=== PATIENT | male | born 1935 | race Caucasian/White ===

== ENCOUNTER 2022-01-27 16:53 | Inpatient (IN) | payer MEDICARE, OTHER ==
[~2022-01-27] VITALS: Ht 165.1 cm; Wt 65.8 kg
--- NOTE | 2022-01-27 17:10 | NUR ---
TREV BLAIR FROM [facility] FOR ELEVATED WBC=16.4 AND FEVER. TO ER BED 5, HOOKED TO MONITOR, VSS. RESPIRATORY THERAPIST AT BEDSIDE, VENT SETTINGS OF: MODE SIMV VC, FiO2 40%, VT 500, RATE 10, PEEP 5. CHANGEDTO HOSP GOWN, COOLING MEASURES DONE. AWAITING MD MELENDEZ
--- NOTE | 2022-01-27 17:35 | NUR ---
DR DUNN AT BEDSIDE
[2022-01-27] MEDS ORDERED: ACETAMINOPHEN 650 MG/SUPP.RECT RC ONE ×2 (17:50→18:30)
[2022-01-27] MEDS ORDERED: IV NS 0.9% 1,000 ML BAG IV ONE (18:00)
--- NOTE | 2022-01-27 18:07 | NUR ---
JUNK REMOVAL SPECIALIST AT BEDSIDE
[2022-01-27 18:11] LABS: BASOPHILS # (AUTO) 0.1 K/uL (0.0-0.2); BASOPHILS % (AUTO) 0.5 % (0.0-2.0); EOSINOPHILS % (AUTO) 0.5 % (0.0-6.0); HEMATOCRIT 26 % (39-51); HEMOGLOBIN 8.6 g/dL (13.5-17.5); LYMPHOCYTES % (AUTO) 7.9 % (20.0-44.0); MEAN CORPUSCULAR HGB CONC 33 g/dl (31.0-36.0); MEAN CORPUSCULAR VOLUME 81 fL (80-96); MONOCYTES # (AUTO) 0.6 K/uL (0.1-1.30); MONOCYTES % (AUTO) 5.1 % (2.0-12.0); NEUTROPHILS # (AUTO) 10.6 K/uL (1.8-8.9); PLATELET COUNT (AUTO) 272 K/uL (150-450); RED BLOOD CELL COUNT(AUTO) 3.21 MIL/uL (4.5-6.0); WHITE BLOOD COUNT (AUTO) 12.4 K/uL (4.3-11.0)
--- NOTE | 2022-01-27 18:13 | NUR ---
INVESTIGATOR VICE AT BEDSIDE
--- NOTE | 2022-01-27 18:14 | NUR ---
RAPID COVID SWAB DONE AND SENT TO LAB
--- NOTE | 2022-01-27 18:19 | NUR ---
URINE SAMPLE COLLECTED VIA STRAIGHT CATHETER, SENT TO LAB
[2022-01-27 18:36] LABS: ALANINE AMINOTRANSFERASE 63 U/L (12-78); ALKALINE PHOSPHATASE 186 U/L (46-116); ASPARTATE AMINOTRANSFERASE 57 U/L (15-37); BILIRUBIN,DIRECT 0.3 mg/dL (0.0-0.2); BILIRUBIN,TOTAL 0.6 mg/dL (0.2-1.0); CALCIUM, SERUM 8.5 mg/dL (8.5-10.1); CARBON DIOXIDE 34 mmol/L (21-32); CHLORIDE 93 mmol/L (98-107); CREATININE 0.7 mg/dL (0.6-1.3); GLUCOSE 164 mg/dL (74-106); POTASSIUM 4.3 mmol/L (3.5-5.1); SODIUM SERUM 130 mmol/L (136-145); TOTAL PROTEIN, SERUM 7.4 g/dL (6.4-8.2); UREA NITROGEN, BLOOD 23 mg/dL (7-18)
[2022-01-27 19:53] LABS: BILIRUBIN,URINE NEGATIVE (NEGATIVE); COLOR,URINE YELLOW (YELLOW); LEUKOCYTE ESTERASE ,URINE NEGATIVE (NEGATIVE); NITRITE, URINE NEGATIVE (NEGATIVE); PROTEIN,URINE TRACE mg/dl (NEGATIVE); UGLUCOSE NEGATIVE (NEGATIVE); UROBILINOGEN,URINE >=8.0 EU/dL (0.2)
[2022-01-27] MEDS ORDERED: ENOXAPARIN SODIUM 30 MG/0.3 ML DISP.SYRIN SQ SCH (21:00)
[2022-01-27] MEDS ORDERED: ONDANSETRON HCL/PF 4 MG/2 ML VIAL IVP PRN (21:00)
[2022-01-27] MEDS ORDERED: HYDROCODONE/APAP 5/325MG TABLET GT PRN (21:00)
[2022-01-27] MEDS ORDERED: MAG HYDROX/AL HYDROX/SIMETH 30 ML UDC PO PRN (21:00)
[2022-01-27] MEDS ORDERED: MAGNESIUM HYDROXIDE 30 ML UDC PO PRN (21:00)
[2022-01-27] MEDS ORDERED: Z GUARD REMEDY 4 OZ OINT TP PRN (21:00)
[2022-01-27] MEDS ORDERED: MORPHINE SULFATE INJ 2 MG/ML DISP.SYRIN IV PRN (21:00)
[2022-01-27] MEDS ORDERED: CEFEPIME 1 GM in IV D5W 50 ML IV SCH (21:00)
--- NOTE | 2022-01-27 21:03 | NUR ---
BED GIVEN 111-1
--- NOTE | 2022-01-27 21:10 | NUR ---
US TECH FOR ECHOCARRDIOGRAM AT PT'S BEDSIDE
[2022-01-27] MEDS ORDERED: VANCOMYCIN 1.25 GM in IV D5W 250 ML IV ONE (22:00)
--- NOTE | 2022-01-27 22:05 | NUR ---
REPORT GIVEN TO KATHY TRIVEDI RN FOR KEIRY
--- NOTE | 2022-01-27 22:34 | NUR ---
PT TRANSPORTED TO UNIT ON GURNEY WITH EMT, RT AND RN AT BEDSIDE W/ ACLS PROTOCOL. NAD NOTED DURING TRANSPORT
--- NOTE | 2022-01-27 22:35 | NUR ---
2235 Admitted from ER 86 year old male via [facility] with Dx of Pneumonia. Patient is vented with eyes open. Does not follow any commands. Systems assessment done, please refer to flow sheet. Tracheostomy intact and patent, and secured at midline, connected to vent with prescribed settings. Suctioned with moderate amount of whitish secretions. Noted with DTI on bilateral heels, and open wound on sacrococcyx and left gluteal fold. Dressing applied on affected areas. Bilateral lower and upper extremities with contractures. PEG intact and patent. Admission care rendered. Complete bed bath rendered. Turned and repositioned form skin management. Call light placed within reach.
[2022-01-27 23:00] VITALS: BP 130/55
[2022-01-27] MEDS: IV NS 0.9% 1,000 ML IV PRN (23:10)
[2022-01-27] MEDS ORDERED: CEFEPIME 1 GM VIAL ONE (23:59)
[2022-01-28] MEDS ORDERED: VANCOMYCIN 1 GM VIAL ONE
[2022-01-28] MEDS ORDERED: VANCOMYCIN 500 MG VIAL ONE (00:01)
[2022-01-28] MEDS ORDERED: CRAN400C GT (02:50)
[2022-01-28] MEDS ORDERED: CARV6.25 GT (02:50)
[2022-01-28] MEDS ORDERED: LINA5TAB GT (02:50)
[2022-01-28] MEDS ORDERED: EPOE200011 SUBCUT (02:50)
[2022-01-28] MEDS ORDERED: ATOR40TA GT (02:50)
[2022-01-28] MEDS ORDERED: CLON0.5T4 GT (02:50)
[2022-01-28] MEDS ORDERED: IPRA4AER IH ×2 (02:50)
[2022-01-28] MEDS ORDERED: CHLO473M3 PO (02:50)
[2022-01-28] MEDS ORDERED: INSU100V11 SQ (02:50)
[2022-01-28] MEDS ORDERED: CLON0.1T GT (02:50)
[2022-01-28] MEDS ORDERED: DOCU50LI13 GT (02:50)
[2022-01-28] MEDS ORDERED: NUT.237L30 GT (02:50)
[2022-01-28] MEDS ORDERED: ACET325T53 PO (02:50)
[2022-01-28] MEDS ORDERED: CHOL400T11 GT (02:50)
[2022-01-28] MEDS ORDERED: ASCO500T10 GT (02:50)
[2022-01-28] MEDS ORDERED: INSU100V7 SQ (02:50)
[2022-01-28 04:30] VITALS: BP 108/42
[2022-01-28] MEDS ORDERED: DEXTROSE 50%-WATER 50 ML DISP.SYRIN IV PRN (05:00)
[2022-01-28] MEDS ORDERED: CLONIDINE HCL 0.1 MG TABLET GT PRN (05:00)
[2022-01-28] MEDS ORDERED: GLUCERNA 1.2 1,000 ML BOTTLE NG PRN (05:00)
[2022-01-28] MEDS: ACETAMINOPHEN 325 MG TABLET PO PRN ×2 (05:03→16:11)
[2022-01-28] MEDS: BLOOD SUGAR DIAGNOSTIC 1 EACH STRIP IN SCH ×4 (06:48→23:39)
[2022-01-28] MEDS: INSULIN REGULAR, HUMAN 100 UNIT/ML 3 ML VIAL SQ PRN ×4 (06:49→23:43)
--- NOTE | 2022-01-28 07:27 | NUR ---
RN NOTE PT TOLERATES VENT SETTINGS, O2 SAT AT 100%. NO DISTRESS NOTED.GT PATENT AND IN PLACE, STARTED TUBE FEEDING OF GLUCERNA AT 60ML/HR. HOB ELEVATED. TMAX 100.6 TYLENOL GIVEN. TEMP AFTER 99.9. PT FOR WOUND CONSULT. TURNED AND REPOSITIONED. ENDORSED TO AM SHIFT NURSE FOR KEIRY.
--- NOTE | 2022-01-28 07:34 | NUR ---
RN OPENING NOTES RECEIVED PATIENT REPORT FROM NIGHTSHIFT RN. ON MECHANICAL VENT TOLERATING SETTINGS WELL, OXYGEN SATURATION AT 100%. ATTACHED TO EXTERNAL INGREDIENT SCALER HELPER READING NORMAL SINUS RHYTHM. DIAPER NOTED. SKIN ALTERATIONS DOCUMENTED IN PHYSICAL CHART. TUBE FEEDING RUNNING GLUCERNA AT 60 MLS/HR. SAFETY MEASURES IMPLEMENTED, BED IN LOWEST LOCKED POSITION, SIDE RAILS UP TIMES 2, CALL LIGHT WITHIN REACH. WILL CONTINUE PLAN OF CARE AND ANTICIPATE NEEDS.
[2022-01-28 08:00] VITALS: BP 131/55
[2022-01-28 08:57] LABS: BASOPHILS % (AUTO) 0.2 % (0.0-2.0); EOSINOPHILS % (AUTO) 0.5 % (0.0-6.0); HEMATOCRIT 24 % (39-51); LYMPHOCYTES # (AUTO) 0.6 K/uL (0.8-4.8); LYMPHOCYTES % (AUTO) 6.1 % (20.0-44.0); MEAN CORPUSCULAR HGB CONC 33 g/dl (31.0-36.0); MEAN CORPUSCULAR VOLUME 81 fL (80-96); MONOCYTES # (AUTO) 0.5 K/uL (0.1-1.30); MONOCYTES % (AUTO) 4.8 % (2.0-12.0); NEUTROPHILS # (AUTO) 9.3 K/uL (1.8-8.9); NEUTROPHILS % (AUTO) 88.4 % (43.0-81.0); PLATELET COUNT (AUTO) 243 K/uL (150-450); RED BLOOD CELL COUNT(AUTO) 2.98 MIL/uL (4.5-6.0); WHITE BLOOD COUNT (AUTO) 10.5 K/uL (4.3-11.0)
[2022-01-28] MEDS ORDERED: PANTOPRAZOLE 40 MG VIAL IV SCH (09:00)
[2022-01-28] MEDS: LINAGLIPTIN 5 MG TABLET GT SCH (09:37)
[2022-01-28] MEDS: CHOLECALCIFEROL (VITAMIN D 3) 400 UNIT TABLET GT SCH (09:37)
[2022-01-28] MEDS: clonazePAM 0.5 MG TABLET GT SCH ×2 (09:37→16:11)
[2022-01-28] MEDS: CEFEPIME 2 GM in IV D5W 100 ML IV SCH ×2 (09:37→21:44)
[2022-01-28] MEDS: DOCUSATE SODIUM LIQ 100 MG/10 ML UDC GT SCH ×2 (09:38→16:11)
[2022-01-28] MEDS: ASCORBIC ACID 500 MG TABLET GT SCH (09:38)
[2022-01-28] MEDS: CARVEDILOL 6.25 MG TABLET GT SCH ×2 (09:38→16:12)
[2022-01-28 09:39] LABS: CALCIUM, SERUM 8.2 mg/dL (8.5-10.1); CREATININE 0.7 mg/dL (0.6-1.3); MAGNESIUM 2.5 mg/dL (1.8-2.4); PHOSPHORUS 3.6 mg/dL (2.5-4.9); POTASSIUM 4.1 mmol/L (3.5-5.1)
[2022-01-28] MEDS: ENOXAPARIN SODIUM 60 MG/0.6 ML DISP.SYRIN SQ SCH ×2 (09:40→21:46)
[2022-01-28] MEDS: CHLORHEXIDINE GLUCONATE 15 ML UDC MM SCH ×2 (09:41→16:11)
[2022-01-28 09:49] LABS: THYROID STIMULATING HORMONE 1.804 uIU/mL (0.358-3.74)
--- NOTE | 2022-01-28 10:05 | NUR ---
WOUND CARE CONSULT: PT PRESENTS WITH SACRAL INTACT DEEP TISSUE INJURY WITH SCARRING AND FOOT WOUNDS, PRESENT ON ADMISSION. PT IS INCONTINENT OF URINE AND STOOL. RECOMMENDATIONS MADE FOR SKIN PROTECTION. DISCUSSED WITH NURSING STAFF. DR GARRISON CALLED FOR DPM CONSULT. IN AGREEMENT WITH PLAN OF CARE. FIRST STEP LOW [facility] IS ON ORDER. Addendum: 01/28/22 at 1007 by HIMANSHU DRISCOLL WNDNU Amended: Links added.
[2022-01-28 12:00] VITALS: BP 143/62
[2022-01-28] MEDS: VANCOMYCIN 0.75 GM in IV D5W 250 ML IV SCH (13:18)
[2022-01-28 16:00] VITALS: BP 133/51
[2022-01-28] MEDS: IV NS 0.9% 1,000 ML IV PRN (16:17)
--- NOTE | 2022-01-28 18:55 | NUR ---
RN CLOSING NOTES PATIENT ON MECHANICAL VENT TOLERATING SETTINGS WELL, OXYGEN SATURATION AT 100%. ATTACHED TO EXTERNAL EDUCATION TRAINER READING NORMAL SINUS RHYTHM. DIAPER NOTED. SKIN ALTERATIONS DOCUMENTED IN PHYSICAL CHART. TUBE FEEDING RUNNING GLUCERNA AT 65 MLS/HR. CONDOM CATHETER ATTACHED DRAINING CLEAR YELLOW URINE. SAFETY MEASURES IMPLEMENTED, BED IN LOWEST LOCKED POSITION, SIDE RAILS UP TIMES 2, CALL LIGHT WITHIN REACH. WILL ENDORSE TO NIGHTSHIFT RN FOR CONTINUATION OF CARE.
[2022-01-28 20:00] VITALS: BP 105/42
--- NOTE | 2022-01-28 20:03 | NUR ---
RN NOTE RECEIVED PT WITH TRACH CONNECTED TO VENT ON SIMV MODE. TOLERATING, NOT IN ANY DISTRESS. O2 SAT AT 100%. GT PATENT AND INPLACE, NO RESIDUALS NOTED. ON GLUCERNA 1.2 AT 65ML/HR. HOB ELEVATED. WOUND DRESSINGS CLEAN DRY AND INTACT. NS RUNNING AT 75ML/HR. WILL CONTINUE TO MONITOR.
--- NOTE | 2022-01-28 20:29 | NUR ---
Pt recvd on ordered SIMV vent settings with trach patent and secured. Suction done Q2/PRN. No SOB or respiratory distress noted at this time. SPO2 >92%. Vent plugged into red outlet with alarms on and audible. Spare trach and ambu bag at bedside.
[2022-01-28] MEDS: ATORVASTATIN 40 MG TABLET GT SCH (21:46)
[2022-01-28] MEDS: INSULIN GLARGINE, 100 UNIT/ML CARTRIDGE SQ SCH (22:00)
[2022-01-29] VITALS: BP 118/56
[2022-01-29] MEDS: VANCOMYCIN 0.75 GM in IV D5W 250 ML IV SCH ×2 (01:05→13:19)
[2022-01-29 04:00] VITALS: BP 132/47
[2022-01-29] MEDS: GLUCERNA 1.2 1,000 ML BOTTLE PEG PRN (05:32)
[2022-01-29] MEDS: INSULIN REGULAR, HUMAN 100 UNIT/ML 3 ML VIAL SQ PRN ×4 (05:50→19:05)
[2022-01-29] MEDS: BLOOD SUGAR DIAGNOSTIC 1 EACH STRIP IN SCH ×3 (05:50→18:27)
[2022-01-29 06:11] LABS: BASOPHILS % (AUTO) 0.1 % (0.0-2.0); EOSINOPHILS % (AUTO) 0.5 % (0.0-6.0); HEMATOCRIT 26 % (39-51); HEMOGLOBIN 8.5 g/dL (13.5-17.5); LYMPHOCYTES # (AUTO) 0.5 K/uL (0.8-4.8); LYMPHOCYTES % (AUTO) 5.4 % (20.0-44.0); MEAN CORPUSCULAR HGB CONC 33 g/dl (31.0-36.0); MEAN CORPUSCULAR VOLUME 83 fL (80-96); MONOCYTES # (AUTO) 0.5 K/uL (0.1-1.30); MONOCYTES % (AUTO) 4.9 % (2.0-12.0); NEUTROPHILS # (AUTO) 9.1 K/uL (1.8-8.9); NEUTROPHILS % (AUTO) 89.1 % (43.0-81.0); PLATELET COUNT (AUTO) 236 K/uL (150-450); WHITE BLOOD COUNT (AUTO) 10.2 K/uL (4.3-11.0)
--- NOTE | 2022-01-29 06:45 | NUR ---
RN NOTE PT TOLERATES VENT SETTINGS, NO SIGNS OF DISTRESS NOTED. CONTINUE ON TUBE FEEDING, NO RESIDUALS NOTED, TOLERATING. KEPT HOB ELEVATED. FSBS 218, INSULIN COVERAGE GIVEN ORDERED. PT REMAIN AFEBRILE. PT WITH CONDOM CATH. CONTINUE ON IVF NS AT 75ML/HR, INFUSING WELL. FREQUENT MONITORING. WILL ENDORSE TO NEXT SHIFT NURSE FOR KEIRY.
[2022-01-29 06:53] LABS: ALBUMIN 1.7 g/dL (3.4-5.0); BILIRUBIN,TOTAL 0.5 mg/dL (0.2-1.0); CREATININE 0.8 mg/dL (0.6-1.3); MAGNESIUM 2.6 mg/dL (1.8-2.4); PHOSPHORUS 3.2 mg/dL (2.5-4.9); POTASSIUM 4.1 mmol/L (3.5-5.1); TOTAL PROTEIN, SERUM 6.6 g/dL (6.4-8.2)
[2022-01-29 08:00] VITALS: BP 161/57
[2022-01-29] MEDS: CHLORHEXIDINE GLUCONATE 15 ML UDC MM SCH ×2 (09:13→17:27)
[2022-01-29] MEDS: ASCORBIC ACID 500 MG TABLET GT SCH (09:13)
[2022-01-29] MEDS: DOCUSATE SODIUM LIQ 100 MG/10 ML UDC GT SCH ×2 (09:13→17:27)
[2022-01-29] MEDS: LINAGLIPTIN 5 MG TABLET GT SCH (09:13)
[2022-01-29] MEDS: CHOLECALCIFEROL (VITAMIN D 3) 400 UNIT TABLET GT SCH (09:14)
[2022-01-29] MEDS: CARVEDILOL 6.25 MG TABLET GT SCH ×2 (09:16→17:27)
[2022-01-29] MEDS: ENOXAPARIN SODIUM 40 MG/0.4 ML DISP.SYRIN SQ SCH (09:19)
[2022-01-29] MEDS: PANTOPRAZOLE 40 MG/PACK PACK GT SCH (09:25)
[2022-01-29] MEDS: clonazePAM 0.5 MG TABLET GT SCH ×2 (09:25→17:27)
[2022-01-29] MEDS: IV NS 0.9% 1,000 ML IV PRN (10:33)
[2022-01-29] MEDS: CEFEPIME 2 GM in IV D5W 100 ML IV SCH ×2 (11:11→20:25)
[2022-01-29 12:00] VITALS: BP 140/57
[2022-01-29 16:00] VITALS: BP 145/61
--- NOTE | 2022-01-29 19:25 | NUR ---
RN CLOSING NOTES PATIENT ON MECHANICAL VENT TOLERATING SETTINGS WELL, OXYGEN SATURATION AT 100%. ATTACHED TO EXTERNAL BOOK CRITIC READING NORMAL SINUS RHYTHM. DIAPER NOTED. SKIN ALTERATIONS DOCUMENTED IN PHYSICAL CHART. TUBE FEEDING RUNNING GLUCERNA AT 65 MLS/HR. CONDOM CATHETER ATTACHED DRAINING CLEAR YELLOW URINE. SAFETY MEASURES IMPLEMENTED, BED IN LOWEST LOCKED POSITION, SIDE RAILS UP TIMES 2, CALL LIGHT WITHIN REACH. WILL ENDORSE TO NIGHTSHIFT RN FOR CONTINUATION OF CARE.
--- NOTE | 2022-01-29 19:30 | NUR ---
RN NOTE I V FLUID NS RATE 75 ML/ HR IS DISCONTINUED.
[2022-01-29 20:00] VITALS: BP 140/59
--- NOTE | 2022-01-29 20:00 | NUR ---
OFFICE LEAD NOTES RECEIVED PT IN BED WITH TRACH CONNECTED TO VENT ON SIMV MODE.AT 2100 V/S STABLE FEBRILE 100.4 RR-36 PTS NOT TOLERATING SIMV PTS IN DISTRESS. RT AT BEDSIDE RECOMMEND AC SETTING SPOKE TO LEVI SECURITY ALARM TECHNICIAN WITH ORDER MAY PUT PTS TO AC MODE RATE OF 10 FI02 40% TV 500 PEEP OF 5 ORDER NOTED AND CARRIED OUT ,PTS RR WENT DOWN TO 19 O2 SAT AT 100%. GT PATENT AND INPLACE, NO RESIDUALS NOTED. ON GLUCERNA 1.2 AT 65ML/HR. HOB ELEVATED. COOLING MEASURES GIVEN ACETAMENOPHEN GIVEN ORDERED .WOUND DRESSINGS CLEAN DRY AND INTACT. WILL CONTINUE TO MONITOR.
[2022-01-29] MEDS: ACETAMINOPHEN 325 MG TABLET PO PRN (20:22)
--- NOTE | 2022-01-29 21:10 | NUR ---
RT NOTE LATE ENTRY Pt rec'd on SIMV mode. Pt showed increased Respiratory Rate, increased WOB, and inadequate spontaneous tidal volumes. Pt placed on noted AC mode settings per MD orders. Pt sx'd for thick mod amt of pale yellow secretions. Alarms are set and audible. Vent plugged into red outlet. Ambu bag at bedside. Addendum: 01/29/22 at 5757 by SABRINA WADE RT Amended: Links added.
--- NOTE | 2022-01-29 21:17 | NUR ---
RN NOTES patient remains tachypneic @36 even after medications given for temp and pain. Vent on SIMV mode, RT Elijah at bedside; will change vent setting to AC mode; notified Dr. Carrion with orders carried out. RR down to 19
[2022-01-29] MEDS: ATORVASTATIN 40 MG TABLET GT SCH (21:58)
[2022-01-30] VITALS: BP 129/56
--- NOTE | 2022-01-30 | NUR ---
ORDER EXPEDITER NOTES PTS TEMP CHECKED 97.4 VENTILATOR AC SETTING WELL TOLERATED.
--- NOTE | 2022-01-30 | NUR ---
daylin gould notes Blood sugar at 6am is 162mg/dl 3 units of regular insulin given per sliding scale .pts on gt feeding Addendum: 01/30/22 at 0656 by ELVA THAYER RN Blood sugar at 12mn is 161mg/dl 3 units of regular insulin given per sliding scale .pts on gt feeding
[2022-01-30] MEDS: INSULIN GLARGINE, 100 UNIT/ML CARTRIDGE SQ SCH ×2 (00:33→22:55)
[2022-01-30] MEDS: INSULIN REGULAR, HUMAN 100 UNIT/ML 3 ML VIAL SQ PRN ×5 (00:35→23:20)
[2022-01-30] MEDS: BLOOD SUGAR DIAGNOSTIC 1 EACH STRIP IN SCH ×5 (00:36→23:19)
[2022-01-30] MEDS: GLUCERNA 1.2 1,000 ML BOTTLE PEG PRN ×2 (00:57→22:00)
[2022-01-30] MEDS: VANCOMYCIN 0.75 GM in IV D5W 250 ML IV SCH ×2 (01:11→12:37)
[2022-01-30 04:00] VITALS: BP 103/61
[2022-01-30 06:02] LABS: BASOPHILS % (AUTO) 0.3 % (0.0-2.0); EOSINOPHILS % (AUTO) 0.5 % (0.0-6.0); HEMATOCRIT 32 % (39-51); HEMOGLOBIN 10.3 g/dL (13.5-17.5); LYMPHOCYTES # (AUTO) 1.2 K/uL (0.8-4.8); LYMPHOCYTES % (AUTO) 8.8 % (20.0-44.0); MEAN CORPUSCULAR HGB CONC 33 g/dl (31.0-36.0); MEAN CORPUSCULAR VOLUME 83 fL (80-96); MONOCYTES # (AUTO) 0.6 K/uL (0.1-1.30); MONOCYTES % (AUTO) 4.5 % (2.0-12.0); NEUTROPHILS # (AUTO) 11.7 K/uL (1.8-8.9); NEUTROPHILS % (AUTO) 85.9 % (43.0-81.0); PLATELET COUNT (AUTO) 284 K/uL (150-450); RED BLOOD CELL COUNT(AUTO) 3.82 MIL/uL (4.5-6.0); WHITE BLOOD COUNT (AUTO) 13.6 K/uL (4.3-11.0)
--- NOTE | 2022-01-30 06:51 | NUR ---
daylin jones Blood sugar at 6am is 162mg/dl 3 units of regular insulin given per sliding scale .pts on gt feeding Addendum: 01/30/22 at 0654 by ELVA THAYER RN Blood sugar at 12mn is 161mg/dl 3 units of regular insulin given per sliding scale .pts on gt feeding Addendum: 01/30/22 at 0655 by ELVA THAYER RN Blood sugar at 6am is 162mg/dl 3 units of regular insulin given per sliding scale .pts on gt feeding
[2022-01-30 06:59] LABS: ALBUMIN 1.9 g/dL (3.4-5.0); BILIRUBIN,DIRECT 0.2 mg/dL (0.0-0.2); BILIRUBIN,TOTAL 0.6 mg/dL (0.2-1.0); CALCIUM, SERUM 8.2 mg/dL (8.5-10.1); CREATININE 0.7 mg/dL (0.6-1.3); POTASSIUM 4.8 mmol/L (3.5-5.1); TOTAL PROTEIN, SERUM 7.1 g/dL (6.4-8.2)
--- NOTE | 2022-01-30 07:17 | NUR ---
RN NOTE PT TOLERATES VENT SETTINGS,ac settings NO SIGNS OF DISTRESS NOTED. CONTINUE ON TUBE FEEDING, NO RESIDUALS NOTED, TOLERATING. KEPT HOB ELEVATED. PT REMAIN AFEBRILE. PT WITH CONDOM CATH. FREQUENT MONITORING. WILL ENDORSE TO NEXT SHIFT NURSE FOR KEIRY.
--- NOTE | 2022-01-30 07:30 | NUR ---
RN OPENING NOTES RECEIVED PATIENT REPORT FROM NIGHTSHIFT RN. ON MECHANICAL VENT TOLERATING SETTINGS WELL, OXYGEN SATURATION AT 100%. ATTACHED TO EXTERNAL FOUNDRY FINISHER READING NORMAL SINUS RHYTHM. PATIENT ON DIAPER. TUBE FEEDING RUNNING GLUCERNA AT 65 MLS/HR. SAFETY MEASURES IMPLEMENTED, BED IN LOWEST LOCKED POSITION, SIDE RAILS UP TIMES 3, CALL LIGHT WITHIN REACH. WILL CONTINUE PLAN OF CARE AND ANTICIPATE NEEDS.
[2022-01-30 08:00] VITALS: BP 156/79
[2022-01-30] MEDS: ASCORBIC ACID 500 MG TABLET GT SCH (09:19)
[2022-01-30] MEDS: CHLORHEXIDINE GLUCONATE 15 ML UDC MM SCH ×2 (09:19→16:51)
[2022-01-30] MEDS: CHOLECALCIFEROL (VITAMIN D 3) 400 UNIT TABLET GT SCH (09:20)
[2022-01-30] MEDS: CARVEDILOL 6.25 MG TABLET GT SCH ×2 (09:20→16:51)
[2022-01-30] MEDS: clonazePAM 0.5 MG TABLET GT SCH ×2 (09:21→16:51)
[2022-01-30] MEDS: DOCUSATE SODIUM LIQ 100 MG/10 ML UDC GT SCH ×2 (09:21→16:51)
[2022-01-30] MEDS: LINAGLIPTIN 5 MG TABLET GT SCH (09:21)
[2022-01-30] MEDS: CEFEPIME 2 GM in IV D5W 100 ML IV SCH ×2 (09:25→21:54)
[2022-01-30] MEDS: PANTOPRAZOLE 40 MG/PACK PACK GT SCH (09:26)
[2022-01-30] MEDS: ENOXAPARIN SODIUM 40 MG/0.4 ML DISP.SYRIN SQ SCH (09:47)
[2022-01-30 12:00] VITALS: BP 107/68
[2022-01-30] MEDS: ACETAMINOPHEN 325 MG TABLET PO PRN (12:37)
[2022-01-30 16:00] VITALS: BP 96/53
--- NOTE | 2022-01-30 17:00 | NUR ---
RN NOTE PATIENT'S MEDICATION CARVEDILOL ON HOLD DUE TO LOW BP: 96/53
--- NOTE | 2022-01-30 19:00 | NUR ---
CLOSING NOTES PATIENT ON MECHANICAL VENT TOLERATING SETTINGS WELL, OXYGEN SATURATION AT 100%. ATTACHED TO EXTERNAL HOSPITAL LIAISON READING NORMAL SINUS RHYTHM. TUBE FEEDING RUNNING GLUCERNA AT 65 MLS/HR. CONDOM CATHETER ATTACHED DRAINING CLEAR YELLOW URINE. SAFETY MEASURES IMPLEMENTED, BED IN LOWEST LOCKED POSITION, SIDE RAILS UP TIMES 2, CALL LIGHT WITHIN REACH. WILL ENDORSE TO NIGHTSHIFT RN FOR CONTINUATION OF CARE.
[2022-01-30 20:00] VITALS: BP 146/76
[2022-01-30] MEDS: ATORVASTATIN 40 MG TABLET GT SCH (21:58)
--- NOTE | 2022-01-30 23:23 | NUR ---
telephone clerk telegraph office notes Blood sugar for 12mn is 143 mg/dl lantus 36 units given as ordered and 2units of regular insulin given per sliding scale
[2022-01-31] VITALS: BP 122/67
[2022-01-31] MEDS: VANCOMYCIN 0.75 GM in IV D5W 250 ML IV SCH ×2 (01:20→12:09)
--- NOTE | 2022-01-31 02:22 | NUR ---
RELIABILITY ENGINEER NOTES RECEIVED PT IN BED WITH TRACH CONNECTED TO VENT ON AC MODE.RATE 10 TV 500 FIO2 40% PEEP OF 5,WELL TOLERATED BY PTS V/S STABLE AFEBRILE .NO SOB NO DISTRESS NOTED . O2 SAT AT 100%. GT PATENT AND INPLACE, NO RESIDUALS NOTED. ON GLUCERNA 1.2 AT 65ML/HR. HOB ELEVATED. .WOUND DRESSINGS CLEAN DRY AND INTACT.DUE MEDS GIVEN ORDERED WILL CONTINUE TO MONITOR PTS.
[2022-01-31 04:00] VITALS: BP 115/64
[2022-01-31] MEDS: INSULIN REGULAR, HUMAN 100 UNIT/ML 3 ML VIAL SQ PRN ×3 (05:07→23:19)
[2022-01-31] MEDS: BLOOD SUGAR DIAGNOSTIC 1 EACH STRIP IN SCH ×4 (05:09→23:16)
--- NOTE | 2022-01-31 05:12 | NUR ---
television production technician notes blood sugar for 6am is 158 mg/dl 2 unit of regular insulin given per sliding scale
--- NOTE | 2022-01-31 05:49 | NUR ---
Pt recvd on ordered AC vent settings with trach patent and secured. Suction done Q2/PRN. No SOB or respiratory distress noted at this time. SPO2 >92% maintained. Trach care done. Vent plugged into red outlet with alarms on and audible. Spare trach and ambu bag at bedside.
[2022-01-31 07:09] LABS: BASOPHILS % (AUTO) 0.2 % (0.0-2.0); EOSINOPHILS % (AUTO) 0.7 % (0.0-6.0); HEMATOCRIT 26 % (39-51); HEMOGLOBIN 8.6 g/dL (13.5-17.5); LYMPHOCYTES # (AUTO) 0.8 K/uL (0.8-4.8); LYMPHOCYTES % (AUTO) 7.4 % (20.0-44.0); MEAN CORPUSCULAR HGB CONC 33 g/dl (31.0-36.0); MEAN CORPUSCULAR VOLUME 84 fL (80-96); MONOCYTES # (AUTO) 0.6 K/uL (0.1-1.30); NEUTROPHILS # (AUTO) 8.9 K/uL (1.8-8.9); NEUTROPHILS % (AUTO) 85.7 % (43.0-81.0); PLATELET COUNT (AUTO) 245 K/uL (150-450); RED BLOOD CELL COUNT(AUTO) 3.15 MIL/uL (4.5-6.0); WHITE BLOOD COUNT (AUTO) 10.4 K/uL (4.3-11.0)
[2022-01-31 07:19] LABS: CALCIUM, SERUM 8.2 mg/dL (8.5-10.1); CREATININE 0.6 mg/dL (0.6-1.3); POTASSIUM 4.5 mmol/L (3.5-5.1)
[2022-01-31 08:00] VITALS: BP 150/71
--- NOTE | 2022-01-31 08:04 | NUR ---
telephone operator receptionist note patient in bed with trach to vent setting as ordered, on tele monitor sr hr 93 ,with condom cath to gravity with yellow color urine, on g tube feeding as ordered ,keep hob elevated at all time, all needs attended will cont to monitor
[2022-01-31] MEDS: LINAGLIPTIN 5 MG TABLET GT SCH (09:15)
[2022-01-31] MEDS: PANTOPRAZOLE 40 MG/PACK PACK GT SCH (09:16)
[2022-01-31] MEDS: CHLORHEXIDINE GLUCONATE 15 ML UDC MM SCH ×2 (09:16→17:35)
[2022-01-31] MEDS: DOCUSATE SODIUM LIQ 100 MG/10 ML UDC GT SCH ×2 (09:16→17:35)
[2022-01-31] MEDS: CARVEDILOL 6.25 MG TABLET GT SCH ×2 (09:16→17:36)
[2022-01-31] MEDS: CHOLECALCIFEROL (VITAMIN D 3) 400 UNIT TABLET GT SCH (09:16)
[2022-01-31] MEDS: clonazePAM 0.5 MG TABLET GT SCH ×2 (09:16→17:35)
[2022-01-31] MEDS: CEFEPIME 2 GM in IV D5W 100 ML IV SCH ×2 (09:17→20:06)
[2022-01-31] MEDS: ENOXAPARIN SODIUM 40 MG/0.4 ML DISP.SYRIN SQ SCH (09:17)
[2022-01-31] MEDS: ASCORBIC ACID 500 MG TABLET GT SCH (09:21)
[2022-01-31 12:00] VITALS: BP 150/62
--- NOTE | 2022-01-31 12:00 | NUR ---
DRY PAN FEEDER NOTE ROUNDS MADE TURN REPOSITION , ON VENT SETTING ,TOLERATED WELL WILL MONITOR
[2022-01-31 16:00] VITALS: BP 156/72
--- NOTE | 2022-01-31 16:00 | NUR ---
BODY BUILDER NOTE KEEP CLEAN ,DRY ABLE TO MAKE BM ALL NEEDS ATTENDED, NEW HL INSERTED ON RT HAND SAYRA 24 WILL MONITOR
[2022-01-31] MEDS: GLUCERNA 1.2 1,000 ML BOTTLE PEG PRN (17:31)
[2022-01-31 20:00] VITALS: BP 134/74
[2022-01-31] MEDS: ATORVASTATIN 40 MG TABLET GT SCH (21:05)
[2022-01-31] MEDS: INSULIN GLARGINE, 100 UNIT/ML CARTRIDGE SQ SCH (21:11)
[2022-02-01] VITALS: BP 137/71
--- NOTE | 2022-02-01 | NUR ---
VARNISHING UNIT OPERATOR OPENING NOTE PT RECEIVED IN BED, OPENS EYES, NON-VERBAL. PT ON PORTEX #7, AC 10, TV 500, FIO2 40%, PEEP 5 WITH CURRENT O2SAT OF 100%; NO S/S OF RESP DISTRESS, NO SOB OR COUGH, NON-LABORED AND EQUAL BREATHING; APPEARS COMFORTABLE OVERALL. PT ATTACHED TO EXTERNAL MONITOR, SR WITH HR OF 81. PT NOTED TO HAVE CONDOM CATH; CONDOM CATH IS INTACT AND PATENT, NO SIGNS OF LEAKING, DRAINING CLEAR AND YELLOW URINE. IV ACCESS ON RIGHT HAND 20G AND LEFT HAND 20G; INTACT AND PATENT, FLUSHES EASILY WITH NO RESISTANCE; CURRENTLY HAS NO FLUIDS/MEDS RUNNING THROUGH IT. GT DRESSING C/D/I WITH GLUCERNA RUNNING AT 65 ML/HR; NO RESIDUALS NOTED. BED IN LOWEST POSITION, CALL LIGHT WITHIN REACH, SIDE RAILS UP X3. WILL CONTINUE TO MONITOR THROUGHOUT THE NIGHT.
[2022-02-01] MEDS: VANCOMYCIN 0.75 GM in IV D5W 250 ML IV SCH ×2 (01:12→13:32)
[2022-02-01 04:00] VITALS: BP 121/86
[2022-02-01] MEDS: BLOOD SUGAR DIAGNOSTIC 1 EACH STRIP IN SCH ×4 (05:37→23:57)
[2022-02-01] MEDS: INSULIN REGULAR, HUMAN 100 UNIT/ML 3 ML VIAL SQ PRN ×4 (05:41→23:59)
--- NOTE | 2022-02-01 06:36 | NUR ---
COPY MACHINE OPERATOR CLOSING NOTE PT REMAINS IN BED, OPENS EYES, NON-VERBAL; NO CHANGES TO NEURO STATUS. PT ON PORTEX #7 WITH SAME VENT SETTINGS; PT TOLERATED VENT SETTINGS WELL WITH NO S/S OF RESP DISTRESS, NO SOB OR COUGH, NON-LABORED AND EQUAL BREATHING;O2SAT 100% THROUGHOUT THE WHOLE NIGHT. ATTACHED TO EXTERNAL MONITOR, SR WITH PVCS HR RANGED FROM 78-98. CONDOM CATH CHANGED AND IS INTACT AND PATENT, NO SIGNS OF LEAKING, DRAINING CLEAR AND YELLOW URINE. IV ACCESS ON RIGHT HAND 24G AND LEFT HAND 20G; INTACT AND PATENT, FLUSHES EASILY WITH NO RESISTANCE; CURRENTLY HAS NO FLUIDS/MEDS RUNNING THROUGH IT. GT DRESSING C/D/I WITH GLUCERNA RUNNING AT 65 ML/HR. ALL DUE MEDS ADMINISTERED DURING THE NIGHT. BED IN LOWEST POSITION, CALL LIGHT WITHIN REACH, SIDE RAILS UP X3. WILL ENDORSE TO DAYSHIFT NURSE TO CONTINUE CARE.
[2022-02-01 07:10] LABS: CALCIUM, SERUM 8.3 mg/dL (8.5-10.1); CREATININE 0.7 mg/dL (0.6-1.3)
[2022-02-01 07:18] LABS: BASOPHILS % (AUTO) 0.2 % (0.0-2.0); EOSINOPHILS % (AUTO) 0.7 % (0.0-6.0); HEMATOCRIT 25 % (39-51); HEMOGLOBIN 8.5 g/dL (13.5-17.5); LYMPHOCYTES # (AUTO) 0.6 K/uL (0.8-4.8); LYMPHOCYTES % (AUTO) 5.9 % (20.0-44.0); MEAN CORPUSCULAR HGB CONC 34 g/dl (31.0-36.0); MEAN CORPUSCULAR VOLUME 83 fL (80-96); MONOCYTES # (AUTO) 0.5 K/uL (0.1-1.30); MONOCYTES % (AUTO) 4.6 % (2.0-12.0); NEUTROPHILS # (AUTO) 8.8 K/uL (1.8-8.9); NEUTROPHILS % (AUTO) 88.6 % (43.0-81.0); PLATELET COUNT (AUTO) 261 K/uL (150-450); RED BLOOD CELL COUNT(AUTO) 3.05 MIL/uL (4.5-6.0); WHITE BLOOD COUNT (AUTO) 9.9 K/uL (4.3-11.0)
--- NOTE | 2022-02-01 07:33 | NUR ---
ROUGH RICE TENDER OPENING NOTE PT RECEIVED IN BED, OPENS EYES, NON-VERBAL. PT ON PORTEX #7, AC 10, TV 500, FIO2 40%, PEEP 5 WITH CURRENT O2SAT OF 100%; NO S/S OF RESP DISTRESS, NO SOB OR COUGH, NON-LABORED AND EQUAL BREATHING; APPEARS COMFORTABLE OVERALL. PT ATTACHED TO EXTERNAL MONITOR. PT NOTED TO HAVE CONDOM CATH; CONDOM CATH IS INTACT AND PATENT, NO SIGNS OF LEAKING, DRAINING CLEAR AND YELLOW URINE. IV ACCESS ON RIGHT HAND 20G AND LEFT HAND 20G; INTACT AND PATENT, FLUSHES EASILY WITH NO RESISTANCE; CURRENTLY HAS NO FLUIDS/MEDS RUNNING THROUGH IT. GT DRESSING C/D/I WITH GLUCERNA RUNNING AT 65 ML/HR; NO RESIDUALS NOTED. BED IN LOWEST POSITION, CALL LIGHT WITHIN REACH, SIDE RAILS UP X3.
[2022-02-01 08:00] VITALS: BP 145/71
[2022-02-01] MEDS: PANTOPRAZOLE 40 MG/PACK PACK GT SCH (09:10)
[2022-02-01] MEDS: LINAGLIPTIN 5 MG TABLET GT SCH (09:10)
[2022-02-01] MEDS: DOCUSATE SODIUM LIQ 100 MG/10 ML UDC GT SCH ×2 (09:10→17:27)
[2022-02-01] MEDS: ASCORBIC ACID 500 MG TABLET GT SCH (09:10)
[2022-02-01] MEDS: CHOLECALCIFEROL (VITAMIN D 3) 400 UNIT TABLET GT SCH (09:10)
[2022-02-01] MEDS: clonazePAM 0.5 MG TABLET GT SCH ×2 (09:10→17:27)
[2022-02-01] MEDS: CHLORHEXIDINE GLUCONATE 15 ML UDC MM SCH ×2 (09:10→17:27)
[2022-02-01] MEDS: CARVEDILOL 6.25 MG TABLET GT SCH ×2 (09:10→17:27)
[2022-02-01] MEDS: CEFEPIME 2 GM in IV D5W 100 ML IV SCH ×2 (09:10→22:07)
[2022-02-01] MEDS: ENOXAPARIN SODIUM 40 MG/0.4 ML DISP.SYRIN SQ SCH (09:11)
[2022-02-01 12:00] VITALS: BP 126/66
[2022-02-01] MEDS: GLUCERNA 1.2 1,000 ML BOTTLE PEG PRN (12:47)
[2022-02-01 16:00] VITALS: BP 107/59
--- NOTE | 2022-02-01 20:43 | NUR ---
FAROOQ/RN AT INITIAL SHIFT ROUND, PATIENT WAS IN BED WITH EYES CLOSED, NO SIGNS OF DISTRESS NOTED, ON MECHANICAL VENTILATOR, G TUBE FEEDING INFUSING, NO RESIDUAL NOTED, HOB ELEVATED, CALL LIGHT WITHIN REACH, FALL PRECAUTIONS PER PROTOCOL, WILL MONITOR.
[2022-02-01 21:00] VITALS: BP 114/52
--- NOTE | 2022-02-01 21:19 | NUR ---
FAROOQ/RN NO CHANGE IN CONDITION, ENDORSED TO VIRGIE YOUSSEF, FOR KEIRY.
[2022-02-01] MEDS: ATORVASTATIN 40 MG TABLET GT SCH (22:44)
[2022-02-02] VITALS: BP 119/64
--- NOTE | 2022-02-02 00:01 | NUR ---
ACCU CHECK Bld glucose 147mg/dl. Patient on Gtube feeding. Given Insulin per SS parameters co signed by VIRGIE King.
[2022-02-02] MEDS: VANCOMYCIN 0.75 GM in IV D5W 250 ML IV SCH ×2 (01:14→12:11)
[2022-02-02] MEDS: GLUCERNA 1.2 1,000 ML BOTTLE PEG PRN ×2 (05:08→23:45)
[2022-02-02 05:12] VITALS: BP 155/76
[2022-02-02] MEDS: INSULIN REGULAR, HUMAN 100 UNIT/ML 3 ML VIAL SQ PRN ×3 (05:31→17:56)
[2022-02-02] MEDS: BLOOD SUGAR DIAGNOSTIC 1 EACH STRIP IN SCH ×3 (05:32→17:55)
--- NOTE | 2022-02-02 05:34 | NUR ---
ACCU CHECK Bld glucose 161mg/dl. Patient on Gtube feeding. Given Insulin per SS parameters co signed by VIRGIE Dnucan.
--- NOTE | 2022-02-02 06:20 | NUR ---
END OF SHIFT REPORT Patient non verbal. Trach intact, on Mechanical vent. Sinus rhythm in the Tele monitor HR 120's. Trach care, suction PRN. Had BM during the shift, incontinence care done. Tolerating Gtube feeding, minimal gastric residual, maintained upright posture. IV peripheral line intact. On IV abx. Low grade temp 99F. Accu check q6H with SS parameters. Turned and repositioned, offloading. Fall/skin/aspiration precaution maintained. Will endorse to oncoming RN.
--- NOTE | 2022-02-02 07:33 | NUR ---
RN OPENING NOTE PT RECEIVED IN BED, OPENS EYES, NON-VERBAL. PT ON PORTEX #7, AC 10, TV 500, FIO2 40%, PEEP 5 WITH CURRENT O2SAT OF 100%; NO S/S OF RESP DISTRESS, NO SOB OR COUGH, NON-LABORED AND EQUAL BREATHING; APPEARS COMFORTABLE OVERALL. PT ATTACHED TO EXTERNAL MONITOR, PT NOTED TO HAVE CONDOM CATH; CONDOM CATH IS INTACT AND PATENT, NO SIGNS OF LEAKING, DRAINING CLEAR AND YELLOW URINE.IV ACCESS; INTACT AND PATENT, FLUSHES EASILY WITH NO RESISTANCE; CURRENTLY HAS NO FLUIDS/MEDS RUNNING THROUGH IT. GT DRESSING C/D/I WITH GLUCERNA RUNNING AT 65 ML/HR; NO RESIDUALS NOTED. BED IN LOWEST POSITION, CALL LIGHT WITHIN REACH, SIDE RAILS UP X3.
[2022-02-02 07:46] LABS: CALCIUM, SERUM 8.2 mg/dL (8.5-10.1); CARBON DIOXIDE 29 mmol/L (21-32); CHLORIDE 97 mmol/L (98-107); CREATININE 0.7 mg/dL (0.6-1.3); GLUCOSE 168 mg/dL (74-106); POTASSIUM 4.4 mmol/L (3.5-5.1); SODIUM SERUM 131 mmol/L (136-145); UREA NITROGEN, BLOOD 16 mg/dL (7-18)
[2022-02-02 08:00] VITALS: BP 129/48
[2022-02-02] MEDS: DOCUSATE SODIUM LIQ 100 MG/10 ML UDC GT SCH ×2 (08:19→17:00)
[2022-02-02] MEDS: CHOLECALCIFEROL (VITAMIN D 3) 400 UNIT TABLET GT SCH (08:20)
[2022-02-02] MEDS: PANTOPRAZOLE 40 MG/PACK PACK GT SCH (08:20)
[2022-02-02] MEDS: CHLORHEXIDINE GLUCONATE 15 ML UDC MM SCH ×2 (08:20→17:53)
[2022-02-02] MEDS: clonazePAM 0.5 MG TABLET GT SCH ×2 (08:21→17:55)
[2022-02-02] MEDS: ASCORBIC ACID 500 MG TABLET GT SCH (08:21)
[2022-02-02] MEDS: LINAGLIPTIN 5 MG TABLET GT SCH (08:21)
[2022-02-02] MEDS: ENOXAPARIN SODIUM 40 MG/0.4 ML DISP.SYRIN SQ SCH (08:22)
[2022-02-02] MEDS: CARVEDILOL 6.25 MG TABLET GT SCH ×2 (08:22→17:55)
[2022-02-02] MEDS: CEFEPIME 2 GM in IV D5W 100 ML IV SCH ×2 (08:24→20:41)
[2022-02-02 12:00] VITALS: BP 123/57
[2022-02-02] MEDS ORDERED: EPOETIN ALFA-EPBX 20,000 UNIT/ML VIAL SQ SCH (15:00)
[2022-02-02 16:00] VITALS: BP 123/47
--- NOTE | 2022-02-02 18:53 | NUR ---
RN NOTE PATIENTS DAUGHTER NOTIFIED ME THAT THE PATIENT IS ALERGIC TO MONITOR ELECTRODES. INFORMED CHARGE NURSE AND CALLED ICU WE CURRENTLY DO NOT HAVE ANY OTHER ELECTRODES. WILL GET IN CONTACT WITH [employer] FOR OTHER OPTIONS
--- NOTE | 2022-02-02 18:56 | NUR ---
MANAGER QA CLOSING NOTE PT REMAINS IN BED, OPENS EYES, NON-VERBAL; NO CHANGES TO NEURO STATUS. PT ON PORTEX #7 WITH SAME VENT SETTINGS; PT TOLERATED VENT SETTINGS WELL WITH NO S/S OF RESP DISTRESS, NO SOB OR COUGH, NON-LABORED AND EQUAL BREATHING;O2SAT 100% THROUGHOUT THE WHOLE NIGHT. ATTACHED TO EXTERNAL MONITOR, SR WITH PVCS HR RANGED FROM 78-98. CONDOM CATH CHANGED AND IS INTACT AND PATENT, NO SIGNS OF LEAKING, DRAINING CLEAR AND YELLOW URINE. IV LEFT WRIST 22G; INTACT AND PATENT, FLUSHES EASILY WITH NO RESISTANCE; CURRENTLY HAS NO FLUIDS/MEDS RUNNING THROUGH IT. GT DRESSING C/D/I WITH GLUCERNA RUNNING AT 65 ML/HR. ALL DUE MEDS ADMINISTERED DURING THE NIGHT. BED IN LOWEST POSITION, CALL LIGHT WITHIN REACH, SIDE RAILS UP X3. WILL ENDORSE TO DAYSHIFT NURSE TO CONTINUE CARE.
[2022-02-02 20:00] VITALS: BP 117/52
[2022-02-02] MEDS: ACETAMINOPHEN 325 MG TABLET PO PRN (20:41)
--- NOTE | 2022-02-02 21:00 | NUR ---
LACE ROLLER OPERATOR NOTE PER CHARGE NURSE, NOTIFIED AFTERSCHOOL BABYSITTER IF DIFFERENT ELECTRODES ARE AVAILABLE FOR PATIENT BECAUSE PT IS ALLERGIC TO TEACHER BALLET ELECTRODES, NONE AVAILABLE, CHECK WITH CENTRAL SUPPLY IN AM, WILL NOTIFY ONCOMING NURSE
[2022-02-02] MEDS: ATORVASTATIN 40 MG TABLET GT SCH (23:32)
[2022-02-02] MEDS: INSULIN GLARGINE, 100 UNIT/ML CARTRIDGE SQ SCH ×2 (23:34)
[2022-02-03] VITALS (7 sets, daily range): BP systolic 124–141; BP diastolic 59–75
--- NOTE | 2022-02-03 00:23 | NUR ---
CORPORATE AFFAIRS MANAGER NOTE CALLED LAB REGARDING [facility] LAB DRAW, PER TECH THEY WILL LOOK FOR STICKER AND SEND SOMEONE DOWN SOON Addendum: 02/03/22 at 0551 by MELODIE NICOLE RN DISREGARD - LAB DRAW FOR 12 PM NOT MIDNIGHT
[2022-02-03] MEDS: BLOOD SUGAR DIAGNOSTIC 1 EACH STRIP IN SCH ×5 (00:58→23:40)
[2022-02-03] MEDS: VANCOMYCIN 0.75 GM in IV D5W 250 ML IV SCH ×2 (00:58→13:00)
[2022-02-03] MEDS: INSULIN REGULAR, HUMAN 100 UNIT/ML 3 ML VIAL SQ PRN ×5 (01:00→23:42)
--- NOTE | 2022-02-03 06:46 | NUR ---
SPECIAL TAX AUDITOR CLOSING NOTE PATIENT IN BED WITH EYES OPEN, NON-VERBAL. PATIENT STABLE ON MECHANICAL VENT SETTINGS AC 10, TV 500, FIO2 40, PEEP 5, NO S/S OF RESPIRATORY DISTRESS OR SOB NOTED, BREATHING EVEN AND UNLABORED, PT SUCTIONED THROUGHOUT SHIFT. PATIENT SUPPOSED TO BE ON TRAILHEAD CONSTRUCTION WORKER, HOWEVER PT IS ALLERGIC TO ELECTRODES, WILL ENDORSE TO DAYSHIFT NURSE TO CONTACT CENTRAL SUPPLY. CONDOM CATH IN PLACE AND DRAINING CLEAR YELLOW URINE. GTUBE FEEDING INFUSING GLUCERNA 1.2 @ 65 ML/HR. LEFT WRIST #22G IV ACCESS INTACT AND SALINE LOCKED. MEDICATIONS GIVEN ORDERED, PT NEEDS MET THROUGHOUT SHIFT, PATIENT TURNED Q2H, HYGIENE CARE PROVIDED. SAFETY MEASURES IN PLACE: CALL LIGHT WITHIN REACH, SIDE RAILS UP X 3, BED LOCKED IN LOWEST POSITION, BED ALARM ON, HOB ELEVATED TO 30 DEGREES. WILL ENDORSE TO DAYSHIFT NURSE FOR CONTINUITY OF CARE
[2022-02-03 06:55] LABS: BASOPHILS % (AUTO) 0.3 % (0.0-2.0); HEMATOCRIT 27 % (39-51); HEMOGLOBIN 8.8 g/dL (13.5-17.5); LYMPHOCYTES # (AUTO) 0.9 K/uL (0.8-4.8); LYMPHOCYTES % (AUTO) 11.3 % (20.0-44.0); MEAN CORPUSCULAR HGB CONC 33 g/dl (31.0-36.0); MEAN CORPUSCULAR VOLUME 83 fL (80-96); MONOCYTES # (AUTO) 0.5 K/uL (0.1-1.30); MONOCYTES % (AUTO) 5.9 % (2.0-12.0); NEUTROPHILS # (AUTO) 6.4 K/uL (1.8-8.9); NEUTROPHILS % (AUTO) 81.5 % (43.0-81.0); PLATELET COUNT (AUTO) 264 K/uL (150-450); RED BLOOD CELL COUNT(AUTO) 3.23 MIL/uL (4.5-6.0); WHITE BLOOD COUNT (AUTO) 7.8 K/uL (4.3-11.0)
[2022-02-03 07:17] LABS: MAGNESIUM 2.6 mg/dL (1.8-2.4); PHOSPHORUS 3.9 mg/dL (2.5-4.9)
--- NOTE | 2022-02-03 07:20 | NUR ---
RN OPEN NOTE PT RECEIVED IN BED, OPENS EYES, NON-VERBAL. PT ON PORTEX #7, AC 10, TV 500, FIO2 40%, PEEP 5 WITH CURRENT O2SAT OF 100%; NO S/S OF RESP DISTRESS, NO SOB OR COUGH, NON-LABORED AND EQUAL BREATHING; APPEARS COMFORTABLE OVERALL. PT DIDN'T ATTACHED TO THE MONITOR DUE TO HAS ALLERGY TO THE MONITOR LEADS , PT NOTED TO HAVE CONDOM CATH; CONDOM CATH IS INTACT AND PATENT, NO SIGNS OF LEAKING, DRAINING CLEAR AND YELLOW URINE.IV ACCESS ON L WRIST 22 G INTACT ACT AND PATENT, FLUSHES EASILY WITH NO RESISTANCE; CURRENTLY HAS NO FLUIDS/MEDS RUNNING THROUGH IT. GT DRESSING C/D/I WITH GLUCERNA RUNNING AT 65 ML/HR; NO RESIDUALS NOTED. BED IN LOWEST POSITION, CALL LIGHT WITHIN REACH, SIDE RAILS UP X3.WILL CONTINUE TO MONITOR
[2022-02-03 07:49] LABS: CALCIUM, SERUM 8.7 mg/dL (8.5-10.1); CARBON DIOXIDE 26 mmol/L (21-32); CHLORIDE 97 mmol/L (98-107); CREATININE 0.8 mg/dL (0.6-1.3); GLUCOSE 177 mg/dL (74-106); POTASSIUM 4.7 mmol/L (3.5-5.1); SODIUM SERUM 132 mmol/L (136-145); UREA NITROGEN, BLOOD 20 mg/dL (7-18)
[2022-02-03] MEDS: CHLORHEXIDINE GLUCONATE 15 ML UDC MM SCH ×2 (08:46→17:09)
[2022-02-03] MEDS: ASCORBIC ACID 500 MG TABLET GT SCH (08:46)
[2022-02-03] MEDS: DOCUSATE SODIUM LIQ 100 MG/10 ML UDC GT SCH ×2 (08:46→17:09)
[2022-02-03] MEDS: clonazePAM 0.5 MG TABLET GT SCH ×2 (08:46→17:09)
[2022-02-03] MEDS: CARVEDILOL 6.25 MG TABLET GT SCH ×2 (08:47→17:10)
[2022-02-03] MEDS: CHOLECALCIFEROL (VITAMIN D 3) 400 UNIT TABLET GT SCH (08:47)
[2022-02-03] MEDS: LINAGLIPTIN 5 MG TABLET GT SCH (08:53)
[2022-02-03] MEDS: PANTOPRAZOLE 40 MG/PACK PACK GT SCH (08:53)
[2022-02-03] MEDS: CEFEPIME 2 GM in IV D5W 100 ML IV SCH ×2 (09:01→21:22)
[2022-02-03] MEDS: ENOXAPARIN SODIUM 40 MG/0.4 ML DISP.SYRIN SQ SCH (09:01)
[2022-02-03 12:58] LABS: BAND % (MANUAL) 2 % (0.0-5.0); EOSINOPHILS % (MANUAL) 0 % (0-4); LYMPHOCYTES % (MANUAL) 10 % (16-48); MONOCYTES % (MANUAL) 8 % (0-11.0); NEUTROPHILS % (MANUAL) 80 (42-76)
--- NOTE | 2022-02-03 18:54 | NUR ---
RN CLOSING NOTE PT IS IN BED, OPENS EYES, NON-VERBAL. PT ON PORTEX #7, AC 10, TV 500, FIO2 40%, PEEP 5 WITH CURRENT O2SAT OF 100%; NO S/S OF RESP DISTRESS, NO SOB OR COUGH, NON-LABORED AND EQUAL BREATHING; APPEARS COMFORTABLE OVERALL. PT DIDN'T ATTACHED TO THE MONITOR DUE TO HAS ALLERGY TO THE MONITOR LEADS , PT NOTED TO HAVE CONDOM CATH; CONDOM CATH IS INTACT AND PATENT, NO SIGNS OF LEAKING, DRAINING CLEAR AND YELLOW URINE.IV ACCESS ON R HAND 24 G INTACT ACT AND PATENT, FLUSHES EASILY WITH NO RESISTANCE; CURRENTLY HAS NO FLUIDS/MEDS RUNNING THROUGH IT. GT DRESSING C/D/I WITH GLUCERNA RUNNING AT 65 ML/HR; NO RESIDUALS NOTED. BED IN LOWEST POSITION, CALL LIGHT WITHIN REACH, SIDE RAILS UP X3.WILL CONTINUE TO MONITOR
--- NOTE | 2022-02-03 19:30 | NUR ---
NURSE SEXUAL ASSAULT OPENING NOTE RECEIVED PT IN BED, OPENS EYES, NON-VERBAL. PT ON PORTEX #7, AC 10, TV 500, FIO2 40%, PEEP 5 WITH CURRENT O2SAT OF 100%; NO S/S OF RESP DISTRESS, NO SOB OR COUGH, NON-LABORED AND EQUAL BREATHING. IV ACCESS ON R HAND #24, INTACT AND PATENT. PT DIDN'T ATTACHED TO THE MONITOR DUE TO HAS ALLERGY TO THE MONITOR LEADS , PT HAS CONDOM CATH DRAINING CLER YELLOW URINE. PT HAS GT RUNNING GLUCERNA 2.1 @65ML/HR. NO RESIDUALS NOTED. ALL HOSPITAL SAFETY PRECAUTIONS IN PLACE. BED IS LOCKED IN LOWEST POSITION, 3 SIDE RAILS UP, CALL LIGHT WITHIN REACH. WILL CONTINUE TO MONITOR THROUGHOUT SHIFT
--- NOTE | 2022-02-03 20:00 | NUR ---
RN NOTE PATIENT HAS A TEMP OF 99.9. COOLING MEASURES IMPLEMENTED.
[2022-02-03] MEDS: ATORVASTATIN 40 MG TABLET GT SCH (21:23)
[2022-02-03] MEDS: INSULIN GLARGINE, 100 UNIT/ML CARTRIDGE SQ SCH (21:52)
[2022-02-04] VITALS: BP 135/70
[2022-02-04 04:00] VITALS: BP 156/65
[2022-02-04] MEDS: GLUCERNA 1.2 1,000 ML BOTTLE PEG PRN (04:21)
[2022-02-04] MEDS: BLOOD SUGAR DIAGNOSTIC 1 EACH STRIP IN SCH ×4 (06:35→23:04)
[2022-02-04] MEDS: INSULIN REGULAR, HUMAN 100 UNIT/ML 3 ML VIAL SQ PRN ×3 (06:37→23:04)
--- NOTE | 2022-02-04 06:48 | NUR ---
PHP MAGENTO DEVELOPER CLOSING NOTE PT IS IN BED, OPENS EYES, NON-VERBAL. PT TOLERATES VENT SETTING. NO S/S OF RESP DISTRESS, NO SOB OR COUGH, NON-LABORED AND EQUAL BREATHING; APPEARS COMFORTABLE OVERALL. PTTELE MONITOR READING SR HR 83 , PT HAD AN OUTPUT OF 500ML CLEAR AND YELLOW URINE.IV ACCESS ON R HAND 24 G INTACT ACT AND PATENT, GT RUNNING GLUCERNA AT 65 ML/HR; NO RESIDUALS NOTED. BED IN LOWEST POSITION, CALL LIGHT WITHIN REACH, SIDE RAILS UP X3.WILL CONTINUE TO MONITOR
[2022-02-04 07:19] LABS: CALCIUM, SERUM 8.7 mg/dL (8.5-10.1); CARBON DIOXIDE 30 mmol/L (21-32); CHLORIDE 98 mmol/L (98-107); CREATININE 0.7 mg/dL (0.6-1.3); GLUCOSE 172 mg/dL (74-106); POTASSIUM 4.5 mmol/L (3.5-5.1); SODIUM SERUM 134 mmol/L (136-145); UREA NITROGEN, BLOOD 20 mg/dL (7-18)
--- NOTE | 2022-02-04 07:20 | NUR ---
RN OPEN NOTE PT RECEIVED IN BED, OPENS EYES, NON-VERBAL. PT ON PORTEX #7, AC 10, TV 500, FIO2 40%, PEEP 5 WITH CURRENT O2SAT OF 100%; NO S/S OF RESP DISTRESS, NO SOB OR COUGH, NON-LABORED AND EQUAL BREATHING; APPEARS COMFORTABLE OVERALL. PT ATTACHED TO THE MONITOR SR PT NOTED TO HAVE CONDOM CATH; CONDOM CATH IS INTACT AND PATENT, NO SIGNS OF LEAKING, DRAINING CLEAR AND YELLOW URINE.IV ACCESS ON R HAND 24 G INTACT ACT AND PATENT, FLUSHES EASILY WITH NO RESISTANCE; CURRENTLY HAS NO FLUIDS/MEDS RUNNING THROUGH IT. GT DRESSING C/D/I WITH GLUCERNA RUNNING AT 65 ML/HR; NO RESIDUALS NOTED. BED IN LOWEST POSITION, CALL LIGHT WITHIN REACH, SIDE RAILS UP X3.WILL CONTINUE TO MONITOR
[2022-02-04 08:00] VITALS: BP 159/81
[2022-02-04] MEDS: VANCOMYCIN 500 MG in IV D5W 100ml IV SCH ×2 (08:59→21:39)
[2022-02-04] MEDS: LINAGLIPTIN 5 MG TABLET GT SCH (09:00)
[2022-02-04] MEDS: ASCORBIC ACID 500 MG TABLET GT SCH (09:00)
[2022-02-04] MEDS: CHLORHEXIDINE GLUCONATE 15 ML UDC MM SCH ×2 (09:00→16:50)
[2022-02-04] MEDS: PANTOPRAZOLE 40 MG/PACK PACK GT SCH (09:00)
[2022-02-04] MEDS: CHOLECALCIFEROL (VITAMIN D 3) 400 UNIT TABLET GT SCH (09:00)
[2022-02-04] MEDS: DOCUSATE SODIUM LIQ 100 MG/10 ML UDC GT SCH ×2 (09:01→16:50)
[2022-02-04] MEDS: clonazePAM 0.5 MG TABLET GT SCH ×2 (09:01→16:50)
[2022-02-04] MEDS: CARVEDILOL 6.25 MG TABLET GT SCH ×2 (09:01→16:51)
[2022-02-04] MEDS: ENOXAPARIN SODIUM 40 MG/0.4 ML DISP.SYRIN SQ SCH (09:02)
[2022-02-04] MEDS: CEFEPIME 2 GM in IV D5W 100 ML IV SCH ×2 (09:03→21:16)
--- NOTE | 2022-02-04 10:30 | NUR ---
RN NOTE SPOKE TO THE DAUGHTER ABOUT ACTIVE TREATMENT , PER DR Velarde TO CONSIDER AMPUTATION OB BILATERAL FEET DUE TO DTI , NECROTIC WOUNDS .DAUGHTER STATED THAT SHE NEEDS TO COMMUNICATE WITH THE FAMILY AND WILL CALL BACK TOMORROW TO THE DR VELARDE TO DISCUSS FURTHER , DR VELARDE PHONE NUMBER PROVIDED [phone] .
[2022-02-04 12:34] VITALS: BP 123/63
--- NOTE | 2022-02-04 12:35 | NUR ---
RN NOTE PATIENT DEVELOPED ELEVATED TEMP 101.1 , TYLENOL ADMINISTERED VIA GTUBE WILL RECHECK TEMP IN AN HR
[2022-02-04] MEDS: ACETAMINOPHEN 325 MG TABLET PO PRN (12:38)
--- NOTE | 2022-02-04 13:20 | NUR ---
RN NOTE PATIENT HAS TEMP 99.2 , COOLING MEASURES APPLIED
[2022-02-04 17:20] VITALS: BP 120/58
--- NOTE | 2022-02-04 18:30 | NUR ---
RN CLOSING NOTE PT IS BEDBOUND , OPENS EYES, NON-VERBAL.BOTH ARMS AND LEGS CONTRACTED PT ON PORTEX #7, AC 10, TV 500, FIO2 40%, PEEP 5 WITH CURRENT O2SAT OF 100%; NO S/S OF RESP DISTRESS, PT ATTACHED TO THE MONITOR SR PT NOTED TO HAVE CONDOM CATH; CONDOM CATH IS INTACT AND PATENT, NO SIGNS OF LEAKING, DRAINING CLEAR AND YELLOW URINE.IV ACCESS ON R HAND 24 G INTACT ACT AND PATENT, FLUSHES EASILY WITH NO RESISTANCE; CURRENTLY HAS NO FLUIDS/MEDS RUNNING THROUGH IT. GT DRESSING C/D/I WITH GLUCERNA RUNNING AT 65 ML/HR; NO RESIDUALS NOTED.ALL MEDICATIONS WERE ADMINISTERED , ALL NEEDS WERE MET BED IN LOWEST POSITION, CALL LIGHT WITHIN REACH, SIDE RAILS UP X3.WILL CONTINUE TO MONITOR
[2022-02-04 20:00] VITALS: BP 142/68
--- NOTE | 2022-02-04 20:00 | NUR ---
RN OPEN NOTE PT RECEIVED IN BED, OPENS EYES, NON-VERBAL. PT ON PORTEX #7, AC 10, TV 500, FIO2 40%, PEEP 5 WITH CURRENT O2SAT OF 100%; V/S STABLE AFEBRILE .NO SOB NO DISTRESS NOTED , ON TELE MONITOR SR 84 . PT ON CONDOM CATH; NO SIGNS OF LEAKING, DRAINING CLEAR AND YELLOW URINE.IV ACCESS ON R HAND 24 G INTACT ACT AND PATENT, FLUSHES EASILY WITH NO RESISTANCE;. GT DRESSING C/D/I WITH GLUCERNA RUNNING AT 65 ML/HR; NO RESIDUALS NOTED. DUE MEDS GIVEN ORDERED . DAUGHTER AT BEDSIDE UPDATED WITH PTS CONDITION SHE WILL COME [place] TO TALK TO DR BAUER.RE PTS PLAN ON JODY FOOT. BED IN LOWEST POSITION, CALL LIGHT WITHIN REACH, SIDE RAILS UP X3.WILL CONTINUE TO MONITOR
[2022-02-04] MEDS: ATORVASTATIN 40 MG TABLET GT SCH (21:14)
[2022-02-04] MEDS: INSULIN GLARGINE, 100 UNIT/ML CARTRIDGE SQ SCH (22:56)
--- NOTE | 2022-02-04 23:07 | NUR ---
telephone technician notes Blood sugar for 12mn is 176mg/dl 3 units of regular insulin given per sliding scale and 36 units of lantus given as ordered. pts on gt feeding.
[2022-02-05] VITALS: BP 139/59
[2022-02-05 04:00] VITALS: BP 155/79
[2022-02-05 05:54] LABS: BASOPHILS % (AUTO) 0.2 % (0.0-2.0); EOSINOPHILS % (AUTO) 0.9 % (0.0-6.0); HEMATOCRIT 23 % (39-51); HEMOGLOBIN 7.5 g/dL (13.5-17.5); LYMPHOCYTES # (AUTO) 0.7 K/uL (0.8-4.8); LYMPHOCYTES % (AUTO) 8.8 % (20.0-44.0); MEAN CORPUSCULAR HGB CONC 33 g/dl (31.0-36.0); MEAN CORPUSCULAR VOLUME 83 fL (80-96); MONOCYTES # (AUTO) 0.4 K/uL (0.1-1.30); MONOCYTES % (AUTO) 5.5 % (2.0-12.0); NEUTROPHILS # (AUTO) 6.7 K/uL (1.8-8.9); NEUTROPHILS % (AUTO) 84.6 % (43.0-81.0); PLATELET COUNT (AUTO) 289 K/uL (150-450); RED BLOOD CELL COUNT(AUTO) 2.71 MIL/uL (4.5-6.0)
[2022-02-05] MEDS: INSULIN REGULAR, HUMAN 100 UNIT/ML 3 ML VIAL SQ PRN ×2 (05:55→12:30)
[2022-02-05] MEDS: BLOOD SUGAR DIAGNOSTIC 1 EACH STRIP IN SCH ×2 (05:56→12:21)
--- NOTE | 2022-02-05 05:57 | NUR ---
telecom analyst notes blood sugar at 6am is 155 2 units of regular insulin given per sliding scale
[2022-02-05 06:21] LABS: ALANINE AMINOTRANSFERASE 29 U/L (12-78); ALBUMIN 1.8 g/dL (3.4-5.0); ALKALINE PHOSPHATASE 154 U/L (46-116); ASPARTATE AMINOTRANSFERASE 26 U/L (15-37); BILIRUBIN,TOTAL 0.5 mg/dL (0.2-1.0); CALCIUM, SERUM 8.5 mg/dL (8.5-10.1); CARBON DIOXIDE 32 mmol/L (21-32); CHLORIDE 99 mmol/L (98-107); CREATININE 0.8 mg/dL (0.6-1.3); GLUCOSE 163 mg/dL (74-106); MAGNESIUM 2.5 mg/dL (1.8-2.4); PHOSPHORUS 3.2 mg/dL (2.5-4.9); POTASSIUM 4.6 mmol/L (3.5-5.1); SODIUM SERUM 134 mmol/L (136-145); TOTAL PROTEIN, SERUM 6.7 g/dL (6.4-8.2); UREA NITROGEN, BLOOD 19 mg/dL (7-18)
--- NOTE | 2022-02-05 06:22 | NUR ---
singing telegram performer closing notes Pts remains in bed on vent settings well tolerated no sob no distress noted , no hesham noted at this time . continue on gt feeding no residual noted .all needs attended too.call light within reach ,will endorse to rn day shift for continuity of care.
--- NOTE | 2022-02-05 07:30 | NUR ---
[facility] FORMER OPENING NOTES: RECEIVED PATENT IN BED, AWAKE, OBTUNDED. NO SOB NOTED. NO RESPIRATORY DISTRESS NOTED. ON MECHANICAL VENT WITH # 7 SETTING FOLLOWS: AC 10, VT 500, FIO2 40%, PEEP 5. ON SR WITH HR OF 92 ON TELE MONITOR. SALINE LOCK ON RIGHT HAND INTACT, FLUSHES, WELL, PATENT AND NO S/S OF INFILTRATION NOTED. ON GT FEEDING OF GLUCERNA 1.2 @ 65 ML/HR, DRESSING DRY AND INTACT. CONDOM CATHETER INTACT AND DRAINING WITH CLEAR YELLOW URINE, NO S/S SEDIMENTATION NOTED AND NO S/S HEMATURIA. WILL TURN AND REPOSITION PATIENT ORDERED. HOB ELEVATED. BED LOCKED AND IN LOWEST POSITION. CALL LIGHT WITHIN REACH. WILL CONTINUE TO MONITOR PATIENT.
[2022-02-05 08:00] VITALS: BP 151/69
[2022-02-05] MEDS: VANCOMYCIN 500 MG in IV D5W 100ml IV SCH (08:00)
[2022-02-05] MEDS: ENOXAPARIN SODIUM 40 MG/0.4 ML DISP.SYRIN SQ SCH (09:00)
[2022-02-05] MEDS: DOCUSATE SODIUM LIQ 100 MG/10 ML UDC GT SCH (09:06)
[2022-02-05] MEDS: CHLORHEXIDINE GLUCONATE 15 ML UDC MM SCH (09:06)
[2022-02-05] MEDS: PANTOPRAZOLE 40 MG/PACK PACK GT SCH (09:06)
[2022-02-05] MEDS: clonazePAM 0.5 MG TABLET GT SCH (09:06)
[2022-02-05] MEDS: ASCORBIC ACID 500 MG TABLET GT SCH (09:06)
[2022-02-05] MEDS: CHOLECALCIFEROL (VITAMIN D 3) 400 UNIT TABLET GT SCH (09:07)
[2022-02-05] MEDS: LINAGLIPTIN 5 MG TABLET GT SCH (09:07)
[2022-02-05] MEDS: CARVEDILOL 6.25 MG TABLET GT SCH (09:08)
--- NOTE | 2022-02-05 09:25 | NUR ---
FAMILY CAME AND STAYED AT PATIENT'S BEDSIDE. WILL MONITOR FOR COMFORT AND SAFETY
--- NOTE | 2022-02-05 09:58 | NUR ---
RECEIVED AN ORDER FROM DR. JUANCARLOS Huntley FOR DISCHARGE. FAMILY MEMBER INFORMED AND DISCHARGE PAPERWORK PREPARED. ACCOUNT DIRECTOR MADE AWARE TO ARRANGE TRANSPORTATION FOR THE PATIENT.
[2022-02-05] MEDS: CEFEPIME 2 GM in IV D5W 100 ML IV SCH (10:53)
[2022-02-05] MEDS: GLUCERNA 1.2 1,000 ML BOTTLE PEG PRN (11:02)
--- NOTE | 2022-02-05 11:43 | NUR ---
RECEIVED AN INFORMATION THAT PATIENT WILL BE PICKED UP TODAY @ 1300. CALLED [facility] ROSANA @ , SPOKE WITH VIRGIE SHEN AND GAVE DISCHARGE INSTRUCTIONS. PATIENT WILL BE CONTINUING WITH IV ANTIBIOTICS
[2022-02-05 12:00] VITALS: BP 133/55
--- NOTE | 2022-02-05 13:43 | NUR ---
AMBULANCE CAME AND PICKED UP THE PATIENT WITH RT AT BEDSIDE. PATIENT LEFT VIA GURNEY IN NO RESPIRATORY DISTRESS. SALINE LOCK INTACT FOR CONTINUATION F IV ANTIBIOTICS AT [facility]. CONDOM CATH INTACT AND EMPTIED 350 ML OF YELLOW RHONA URINE, NO HEMATURIA AND NO SEDIMENTATION NOTED. V/S FOLLOWS: 122/52, PULSE 84, 99%, OXYGEN SATURATION, 12 RR AND TEMP 98.0
== END 2022-02-05 15:38 | DRG 870 ==
LOC: ER 16:55 → TELE1 21:15
PROVIDERS: ADMIT Nurse Practitioner Acute Care
PROC: 5A1955Z Respiratory Ventilation, Greater than 96 Consecutive Hours (ICD-10-PCS; principal; 2022-01-27)
DX: A41.1 Sepsis due to other specified staphylococcus (principal); G93.41 Metabolic encephalopathy; I21.A1 Myocardial infarction type 2; J15.6 Pneumonia due to other Gram-negative bacteria; D68.59 Other primary thrombophilia; E44.0 Moderate protein-calorie malnutrition; Z99.11 Dependence on respirator [ventilator] status; E87.1 Hypo-osmolality and hyponatremia; J96.10 Chronic respiratory failure, unspecified whether with hypoxia or hypercapnia; N17.9 Acute kidney failure, unspecified; E11.52 Type 2 diabetes mellitus with diabetic peripheral angiopathy with gangrene; L97.829 Non-pressure chronic ulcer of other part of left lower leg with unspecified severity; L97.819 Non-pressure chronic ulcer of other part of right lower leg with unspecified severity; J95.851 Ventilator associated pneumonia; E86.0 Dehydration; Z20.822 Contact with and (suspected) exposure to COVID-19; Z66 Do not resuscitate; Z93.0 Tracheostomy status; Z93.1 Gastrostomy status; R13.10 Dysphagia, unspecified; M24.561 Contracture, right knee; M24.562 Contracture, left knee; E86.1 Hypovolemia; D63.8 Anemia in other chronic diseases classified elsewhere; E78.5 Hyperlipidemia, unspecified; Z86.74 Personal history of sudden cardiac arrest; Z74.09 Other reduced mobility; M62.50 Muscle wasting and atrophy, not elsewhere classified, unspecified site; Z86.73 Personal history of transient ischemic attack (TIA), and cerebral infarction without residual deficits; Y95 Nosocomial condition; I70.234 Atherosclerosis of native arteries of right leg with ulceration of heel and midfoot; I70.238 Atherosclerosis of native arteries of right leg with ulceration of other part of lower leg; I70.244 Atherosclerosis of native arteries of left leg with ulceration of heel and midfoot; I70.248 Atherosclerosis of native arteries of left leg with ulceration of other part of lower leg; L89.896 Pressure-induced deep tissue damage of other site; E11.621 Type 2 diabetes mellitus with foot ulcer; I10 Essential (primary) hypertension; E88.09 Other disorders of plasma-protein metabolism, not elsewhere classified; Z87.09 Personal history of other diseases of the respiratory system; Y84.8 Other medical procedures as the cause of abnormal reaction of the patient, or of later complication, without mention of misadventure at the time of the procedure; Y92.129 Unspecified place in nursing home as the place of occurrence of the external cause; L89.620 Pressure ulcer of left heel, unstageable; L89.610 Pressure ulcer of right heel, unstageable; E11.622 Type 2 diabetes mellitus with other skin ulcer
CPT/HCPCS: 31720; 36415; 71045-TC; 80048-TC; 80053-TC; 80061-TC; 80076-TC; 80202-TC; 82728-TC; 82962-TC; 83540-TC; 83605-TC; 83735-TC; 84100-TC; 84439-TC; 84443-TC; 84484-TC; 85025-TC; 85730-TC; 87040-TC; 87081-TC; 87086-TC; 93307-TC; 94003-TC; 94760-TC; 94762-TC; 94799-TC; 99082-TC; A4349; A6253; A6403; C9113; C9803; G0378; J0692; J0885; J1650; J1815; J2270; J3370; J7030; J7050; J7060